=== PATIENT | female | born 1980 | race American Indian/Alaskan Native ===

== ENCOUNTER 2016-10-26 12:09 | Emergency (ER) | payer MEDICAID ==
[2016-10-26 12:24] VITALS: BP 141/78
--- NOTE | 2016-10-26 12:45 | EDM.PDOC ---
ED HPI GENERAL MEDICAL PROBLEM - General Chief Complaint: Gastrointestinal Problem Stated Complaint: CONSTIPATED Time Seen by Provider: 10/26/16 12:42 Source of Information: Reports: Patient History Limitations: Reports: No Limitations - History of Present Illness INITIAL COMMENTS - FREE TEXT/NARRATIVE: 36 YO WF presents to ER with complaints of generalized abdominal pain and constipation. Pt reports she hasn't had a normal stool in over 1 month. Pt reports she's passing gas and had a small bowel movement yesterday but her pain became worse last night. Pt denies any fever/chills, denies any history of IBD/ IBS or colitis. Onset Date: 10/25/16 Onset Time: 19:00 Duration: Getting Worse Location: Reports: Abdomen Quality: Reports: Ache Severity: Moderate Improves with: Reports: None Worsens with: Reports: None Associated Symptoms: Reports: Nausea/Vomiting (nausea) Right Lower Abdomen Pain Score (Numeric/FACES): 10 - Related Data Allergies Allergy/AdvReac Type Severity Reaction Status Date / Time codeine Allergy Anaphylactic Verified 10/26/16 13:12 Shock Home Meds: Home Meds Polyethylene Glycol 3350 [MiraLAX] 17 gm PO BID #10 packet 10/26/16 [Rx] Past Medical History Gastrointestinal History: Reports: Cholelithiasis, Pancreatitis 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: 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 Uterine Bleeding, Musculoskeletal History: Reports: Arthritis Neurological History: Reports: Headaches, Chronic, Migraines Other Neuro History: nuerofibromatosis, 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 Psychiatric History: Reports: Anxiety, Depression, Panic Attack, Psych Hospitalization(s), Suicide Attempt Hematologic History: Reports: Blood Transfusion(s) - Infectious Disease History Infectious Disease History: Reports: None - Past Surgical History GI Surgical History: Reports: Appendectomy, Cholecystectomy Female Surgical History: Reports: Section, Hysterectomy, Oophorectomy Social & Family History - Tobacco Use Smoking Status *Q: Current Every Day Smoker Years of Tobacco use: 10 Packs/Tins Daily: 0.5 Used Tobacco, but Quit: No Second Hand Smoke Exposure: Yes - Caffeine Use Caffeine Use: Reports: Coffee, Soda - Alcohol Use Days Per Week of Alcohol Use: 0 - Recreational Drug Use Recreational Drug Use: No Recreational Drug Type: Reports: Marijuana/Hashish Recreational Drug Use Frequency: Daily ED ROS GENERAL - Review of Systems Review Of Systems: See Below Constitutional: Reports: No Symptoms HEENT: Reports: No Symptoms Respiratory: Reports: No Symptoms Cardiovascular: Reports: No Symptoms Endocrine: Reports: No Symptoms GI/Abdominal: Reports: Abdominal Pain, Constipation, Nausea : Reports: No Symptoms Musculoskeletal: Reports: No Symptoms Skin: Reports: No Symptoms Neurological: Reports: No Symptoms Psychiatric: Reports: No Symptoms Hematologic/Lymphatic: Reports: No Symptoms Immunologic: Reports: No Symptoms ED EXAM, GI/ABD - Physical Exam Exam: See Below Exam Limited By: No Limitations General Appearance: Alert, WD/WN, Mild Distress Throat/Mouth: Normal Inspection, Normal Lips, Normal Teeth, Normal Gums, Normal Oropharynx, Normal Voice, No Airway Compromise Head: Atraumatic, Normocephalic Neck: Normal Inspection, Supple, Non-Tender, Full Range of Motion Respiratory/Chest: No Respiratory Distress, Lungs Clear, Normal Breath Sounds, No Accessory Muscle Use, Chest Non-Tender Cardiovascular: Normal Peripheral Pulses, Regular Rate, Rhythm, No Edema, No Gallop, No JVD, No Murmur, No Rub GI/Abdominal: Normal Bowel Sounds, Soft, No Organomegaly, No Distention, No Abnormal Bruit, No Mass, Tenderness (generalized). No: Guarding, Rebound Back Exam: Normal Inspection, Full Range of Motion, NT Extremities: Normal Inspection, Normal Range of Motion, Non-Tender, Normal Capillary Refill, No Pedal Edema Neurological: Alert, Oriented, CN II-XII Intact, Normal Cognition, Normal Gait, Normal Reflexes, No Motor/Sensory Deficits Psychiatric: Normal Affect, Normal Mood Skin Exam: Warm, Dry, Intact, Normal Color, No Rash Lymphatic: No Adenopathy Course - Vital Signs Last Recorded V/S: Last Vital Signs Temp 36.1 C 10/26/16 12:22 Pulse 64 10/26/16 12:22 Resp 20 10/26/16 12:22 BP 141/78 H 10/26/16 12:22 Pulse Ox 99 10/26/16 12:22 - Orders/Labs/Meds Orders: Active Orders 24 hr Category Date Time Status Abdomen Pelvis w Cont [CT] Stat Exams 10/26/16 12:46 Taken Labs: Laboratory Tests 10/26/16 10/26/16 10/26/16 Range/Units 13:05 13:05 13:40 WBC 7.1 (5.0-10.0) 10^3/uL RBC 4.34 (3.80-5.50) 10^6/uL Hgb 13.3 (12.0-16.0) g/dL Hct 38.1 (37.0-47.0) % MCV 87.8 (82.0-92.0) fL MCH 30.6 (27.0-31.0) pg MCHC 34.8 (32.0-36.0) g/dL RDW 12.9 (11.5-14.5) % Plt Count 161 (150-300) 10^3/uL MPV 9.0 (7.4-10.4) fL Neut % (Auto) 75.2 H (50.0-70.0) % Lymph % (Auto) 18.0 L (20.0-40.0) % Prentiss % (Auto) 5.9 (2.0-8.0) % Eos % (Auto) 0.8 L (1.0-3.0) % Baso % (Auto) 0.1 (0.0-1.0) % Neut # (Auto) 5.3 (2.5-7.0) 10^3/uL Lymph # (Auto) 1.3 (1.0-4.0) 10^3/uL Prentiss # (Auto) 0.4 (0.1-0.8) 10^3/uL Eos # (Auto) 0.1 (0.1-0.3) 10^3/uL Baso # (Auto) 0.0 (0.0-0.1) 10^3/uL Sodium 138 (136-145) mmol/L Potassium 4.0 (3.3-5.3) mmol/L Chloride 106 (98-115) mmol/L Carbon Dioxide 23.1 (21.0-32.0) mmol/L BUN 15 (6-25) mg/dL Creatinine 0.59 (0.51-1.17) mg/dL Est Cr Clr Drug Dosing 125.77 mL/min Estimated GFR (MDRD) > 60 mL/min Glucose 98 (70-110) mg/dL Calcium 8.3 L (8.7-10.3) mg/dL Total Bilirubin 0.2 (0.2-1.0) mg/dL AST 15 (15-37) U/L ALT 8 L (12-78) U/L Alkaline Phosphatase 48 (46-116) IU/L Total Protein 6.7 (6.4-8.2) g/dL Albumin 3.64 (3.00-4.80) g/dL Lipase 130 (73-393) U/L Specimen Type Urincc Urine Color Yellow (YELLOW) Urine Appearance Clear (CLEAR) Urine pH 7.0 (5.0-9.0) Ur Specific [place] 1.020 (1.005-1.030) Urine Protein Negative (NEGATIVE) mg/dL Urine Glucose (UA) Negative (NEGATIVE) mg/dL Urine Ketones Negative (NEGATIVE) mg/dL Urine Occult Blood Negative (NEGATIVE) Urine Nitrite Negative (NEGATIVE) Urine Bilirubin Negative (NEGATIVE) Urine Urobilinogen 1.0 (0.2-1.0) E.U./dL Ur Leukocyte Esterase Negative (NEGATIVE) Urine RBC Not seen /HPF Urine WBC 0-5 /HPF Ur Epithelial Cells Moderate H /LPF Amorphous Sediment Moderate H (0/HPF) /HPF Urine Bacteria Rare (NONE TO FEW) /HPF Urine Mucus Few H (NEGATIVE) /LPF Meds: Medications Discontinued Medications Generic Name Dose Route Start Last Admin Trade Name Freq PRN Reason Stop Dose Admin Sodium Chloride 1,000 mls @ 999 mls/hr 10/26/16 12:46 10/26/16 13:05 Normal Saline IV 10/26/16 13:46 999 mls/hr .BOLUS ONE Administration Iopamidol 75 ml 10/26/16 13:20 10/26/16 13:43 Isovue-300 (61%) IV 10/26/16 13:21 75 ml . DIRECTED PRN Administration FOR RADIOLOGY EXAM Ondansetron HCl 4 mg 10/26/16 12:46 10/26/16 13:05 Zofran IVPUSH 10/26/16 12:47 4 mg ONETIME ONE Administration Sodium Chloride 50 ml 10/26/16 13:20 10/26/16 13:43 Normal Saline FLUSH 10/26/16 13:21 50 ml ONETIME ONE Administration - Radiology Interpretation Free Text/Narrative:: CT abd/Pelvis- mild fecal retention in proximal colon Departure - Departure Time of Disposition: 14:22 Disposition: Home, Self-Care 01 Condition: good Clinical Impression: Constipation Qualifiers: Constipation type: unspecified constipation type Qualified Code(s): K59.00 - Constipation, unspecified Abdominal pain Qualifiers: Abdominal location: generalized Qualified Code(s): R10.84 - Generalized abdominal pain - Discharge Information Prescriptions: Polyethylene Glycol 3350 [MiraLAX] 17 gm PO BID #10 packet Instructions: Abdominal Pain, Adult, [id number], Constipation, Adult, Easy-to -Read Forms: ED Department Discharge - My Orders Last 24 Hours: My Active Orders 10/26/16 12:46 Abdomen Pelvis w Cont [CT] Stat - Assessment/Plan Last 24 Hours: My Active Orders 10/26/16 12:46 Abdomen Pelvis w Cont [CT] Stat Assessment:: 1. constipation 2. abdominal pain Plan: 1. discharge home 2. miralax for constipation 3. colace 100mg po BID for stool softener 4. follow up in clinic this week for further evaluation and treatment
[2016-10-26] MEDS ORDERED: Sodium Chloride 0.9% 1,000 ML IV ONE (12:46)
[2016-10-26] MEDS ORDERED: Ondansetron 4 MG/2 ML SDV IVPUSH ONE (12:46)
[2016-10-26] MEDS ORDERED: Sodium Chloride 0.9% 50 ML SDV FLUSH ONE (13:20)
[2016-10-26] MEDS ORDERED: Iopamidol 612 MG/ML 75 ML Bottle IV PRN (13:20)
[2016-10-26 13:41] LABS: CHLORIDE,CL 106 mmol/L (98-115); SODIUM,NA 138 mmol/L (136-145)
[2016-10-26] MEDS ORDERED: Polyethylene Glycol 3350 Powder 17 GM Packet PO SCH (14:30)
== END 2016-10-26 14:45 | disposition home or self-care (01) ==
LOC: KA.ED 12:09
DX: K59.00 Constipation, unspecified (principal); R10.84 Generalized abdominal pain; F17.210 Nicotine dependence, cigarettes, uncomplicated; F41.9 Anxiety disorder, unspecified; F32.9 Major depressive disorder, single episode, unspecified; G43.909 Migraine, unspecified, not intractable, without status migrainosus; M19.90 Unspecified osteoarthritis, unspecified site; Z88.5 Allergy status to narcotic agent; Z90.49 Acquired absence of other specified parts of digestive tract; Z90.710 Acquired absence of both cervix and uterus
CPT/HCPCS: 74177; 80053; 81001; 83690; 85025; 96361; 96374; 99284; J2405; J7030; Q9967

== ENCOUNTER 2017-01-25 21:07 | Emergency (ER) | payer OTHER, MEDICAID ==
[2017-01-25 21:30] VITALS: BP 136/73
--- NOTE | 2017-01-25 21:52 | EDM.PDOC ---
ED HPI GENERAL MEDICAL PROBLEM - General Chief Complaint: Upper Extremity Injury/Pain Stated Complaint: RIGHT SHOULDER INJURY Time Seen by Provider: 01/25/17 21:38 Source of Information: Reports: Patient History Limitations: Reports: No Limitations - History of Present Illness INITIAL COMMENTS - FREE TEXT/NARRATIVE: Patient presents with right posterior shoulder/scapular pain after falling on outstretched right hand about 5 hours ago. She slipped on a wet floor at a diner. She denies any head injury, neck pain, elbow, wrist or hand pain. She feels tingling in her hand and finger going up the forearm. 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: 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 Uterine Bleeding, Musculoskeletal History: Reports: Arthritis Neurological History: Reports: Headaches, Chronic, Migraines Other Neuro History: nuerofibromatosis, 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 Psychiatric History: Reports: Anxiety, Depression, Panic Attack, Psych Hospitalization(s), Suicide Attempt Hematologic History: Reports: Blood Transfusion(s) - Infectious Disease History Infectious Disease History: Reports: None - Past Surgical History GI Surgical History: Reports: Appendectomy, Cholecystectomy Female Surgical History: Reports: Section, Hysterectomy, Oophorectomy Social & Family History - Tobacco Use Smoking Status *Q: Current Every Day Smoker Years of Tobacco use: 10 Packs/Tins Daily: 0.5 Used Tobacco, but Quit: No Second Hand Smoke Exposure: Yes - Caffeine Use Caffeine Use: Reports: Coffee, Soda - Alcohol Use Days Per Week of Alcohol Use: 0 - Recreational Drug Use Recreational Drug Use: No Recreational Drug Type: Reports: Marijuana/Hashish Recreational Drug Use Frequency: Daily Review of Systems - Review of Systems Review Of Systems: See Below Constitutional: Denies: Chills, Fever Eyes: Denies: Vision Change Ears: Denies: Dizziness Nose: Denies: Epistaxis Mouth/Throat: Reports: No Symptoms Respiratory: Denies: Shortness of Breath, Cough Cardiovascular: Denies: Chest Pain, Syncope GI/Abdominal: Denies: Abdominal Pain, Vomiting Genitourinary: Reports: No Symptoms Musculoskeletal: Reports: Shoulder Pain. Denies: Neck Pain, Arm Pain, Back Pain , Hand Pain, Leg Pain Skin: Denies: Cyanosis, Jaundice, Mottled, Pallor, Diaphoresis Neurological: Reports: Tingling. Denies: Confusion, Dizziness, Headache, Numbness, Seizure, Syncope, Trouble Speaking, Difficulty Walking Psychiatric: Denies: Confusion ED EXAM, GENERAL - Physical Exam Exam: See Below Exam Limited By: No Limitations General Appearance: Alert, WD/WN, No Apparent Distress Eye Exam: Bilateral Eye: EOMI, Normal Inspection, PERRL Ears: Normal External Exam, Hearing Grossly Normal Nose: Normal Inspection, No Blood Throat/Mouth: Normal Lips, Normal Voice, No Airway Compromise Head: Atraumatic, Normocephalic Neck: Full Range of Motion Respiratory/Chest: No Respiratory Distress, Lungs Clear, Normal Breath Sounds Cardiovascular: Regular Rate, Rhythm, No Murmur Peripheral Pulses: 2+: Radial (R) Back Exam: Other (tender to palpation of right rhomboid just medial to scapular spine. No bony tenderness or deformity.). No: Paraspinal Tenderness, Vertebral Tenderness Extremities: Non-Tender, No Pedal Edema, Normal Capillary Refill, Other (right wrist is non tender with full ROM, supination/pronation hurts into the back, not at elbow or arm. No tenderness of anterior shoulder, clavicle or humerus, elbow, forearm.) Neurological: Alert, Oriented, Normal Cognition, No Motor/Sensory Deficits, Other (Sensation to touch is intact but feels tingly in hand and fingers.) Psychiatric: Normal Affect, Normal Mood Skin Exam: Warm, Dry, Intact, Normal Color, No Rash Course - Vital Signs Last Recorded V/S: Last Vital Signs Temp 97.6 F 01/25/17 21:28 Pulse 98 01/25/17 21:28 Resp 18 01/25/17 21:28 BP 136/73 01/25/17 21:28 Pulse Ox 98 01/25/17 21:28 - Orders/Labs/Meds Orders: Active Orders 24 hr Category Date Time Status Shoulder Comp Rt [CR] Stat Exams 01/25/17 21:21 Ordered - Re-Assessments/Exams Free Text/Narrative Re-Assessment/Exam: 01/25/17 22:31 Xrays show no evidence of fracture or dislocation. Discussed findings, expectations and treatment plan with patient. Placed a sling. Gave Ibuprofen and Tramadol. Advised to use ice to control swelling for 24-48 hours, then warm packs may be more soothing and healing for the muscle. Follow up with PCP in a few days, especially if not improving. Patient discharged in stable condition. Departure - Departure Time of Disposition: 22:10 Disposition: Home, Self-Care 01 Condition: Good Clinical Impression: Rhomboid muscle strain Qualifiers: Encounter type: initial encounter Qualified Code(s): S29.012A - Strain of muscle and tendon of back wall of thorax, initial encounter - Discharge Information Referrals: Kristen Roberts, DOCUMENT CONTROL SPECIALIST [Primary Care Provider] - Additional Instructions: 1. Wear sling for support and comfort. May remove for showering and range of motion a couple times a day. 2. Take Ibuprofen 600 mg every 8 hours for a few days then as needed. 3. Take the Tramadol as directed if pain is not controlled adequately with the Ibuprofen. 4. Follow up with your PCP in a few days for recheck, sooner if the tingling is worsening or becomes numb. - My Orders Last 24 Hours: My Active Orders 01/25/17 21:21 Shoulder Comp Rt [CR] Stat - Assessment/Plan Last 24 Hours: My Active Orders 01/25/17 21:21 Shoulder Comp Rt [CR] Stat
[2017-01-25] MEDS ORDERED: traMADol 50 MG Tab PO ONE (22:07)
[2017-01-25] MEDS ORDERED: Ibuprofen 600 MG Tab PO ONE (22:10)
[2017-01-25] MEDS ORDERED: Ibuprofen 400 MG Tab ONE (22:14)
[2017-01-25] MEDS ORDERED: Ibuprofen 200 MG Tab ONE (22:15)
[2017-01-25] MEDS ORDERED: traMADol 50 MG Tab ONE (22:16)
== END 2017-01-25 22:30 | disposition home or self-care (01) ==
LOC: KA.ED 21:07
DX: S29.012A Strain of muscle and tendon of back wall of thorax, initial encounter (principal); M19.90 Unspecified osteoarthritis, unspecified site; G43.909 Migraine, unspecified, not intractable, without status migrainosus; F32.9 Major depressive disorder, single episode, unspecified; F17.210 Nicotine dependence, cigarettes, uncomplicated; F41.9 Anxiety disorder, unspecified; Z90.49 Acquired absence of other specified parts of digestive tract; Z90.710 Acquired absence of both cervix and uterus; Z88.5 Allergy status to narcotic agent; W01.0XXA Fall on same level from slipping, tripping and stumbling without subsequent striking against object, initial encounter; Y92.001 Dining room of unspecified non-institutional (private) residence as the place of occurrence of the external cause
CPT/HCPCS: 73030; 99283; A9270

== ENCOUNTER 2017-03-07 17:12 | Emergency (ER) | payer MEDICAID, OTHER ==
[2017-03-07 17:23] VITALS: BP 108/51
[2017-03-07] MEDS: Hydrocortisone 1% Crm 30 GM Tube TOP SCH (18:00)
[2017-03-07] MEDS ORDERED: Lidocaine/Prilocaine 2.5-2.5% Crm 30 GM Tube TOP ONE (18:00)
[2017-03-07] MEDS ORDERED: Lidocaine/Prilocaine 2.5-2.5% Crm 5 GM Tube TOP ONE (18:00)
[2017-03-07] MEDS ORDERED: Lidocaine 2% with EPINEPHrine 1:200,000 20 ML SDV INJECT ONE (18:40)
[2017-03-07] MEDS ORDERED: Ibuprofen 400 MG Tab PO ONE (18:57)
--- NOTE | 2017-03-07 19:17 | EDM.PDOC ---
ED HPI GENERAL MEDICAL PROBLEM - General Chief Complaint: General Stated Complaint: HEMMOROIDS Time Seen by Provider: 03/07/17 17:35 Source of Information: Reports: Patient History Limitations: Reports: No Limitations - History of Present Illness INITIAL COMMENTS - FREE TEXT/NARRATIVE: 36-year-old female presents to emergency room with a painful hemorrhoid. Patient reports history of hemorrhoids in the past and has always been able to treat this with [id number] medications and medicated pads. Her hemorrhoids become quite severe and uncomfortable rating it a 9 out of 10 on pain scale. This bothered her significantly today while at work. She comes in to have this further evaluated. She denies significant constipation and has a regular bowel movement. She denies difficulty having a bowel movement with straining her regular bowel habits. Onset: Today Onset Date: 03/07/17 Onset Time: 08:00 Duration: Hour(s):, Constant Location: Reports: Other (rectum) Quality: Reports: Ache, Throbbing Severity: Severe Improves with: Reports: None Worsens with: Reports: Movement Associated Symptoms: Reports: No Other Symptoms Rectal Pain Score (Numeric/FACES): 9 - Related Data Allergies Allergy/AdvReac Type Severity Reaction Status Date / Time codeine Allergy Anaphylactic Verified 03/07/17 17:24 Shock Home Meds: Home Meds ALPRAZolam [Alprazolam] 0.5 mg PO TID PRN 01/25/17 [History] Polyethylene Glycol 3350 [MiraLAX] 17 gm PO BID PRN 01/25/17 [History] Sertraline HCl [Zoloft] 200 mg PO BEDTIME 01/25/17 [History] Past Medical History HEENT History: Reports: Impaired Vision Respiratory History: Reports: Other (See Below) Other Respiratory History: smoker Gastrointestinal History: Reports: Cholelithiasis, Hemorrhoids, Pancreatitis Genitourinary History: Reports: None 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: 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 Uterine Bleeding, Musculoskeletal History: Reports: Arthritis Neurological History: Reports: Headaches, Chronic, Migraines Other Neuro History: nuerofibromatosis, 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 Psychiatric History: Reports: Anxiety, Depression, Panic Attack, Psych Hospitalization(s), Suicide Attempt Hematologic History: Reports: Blood Transfusion(s) - Infectious Disease History Infectious Disease History: Reports: None - Past Surgical History GI Surgical History: Reports: Appendectomy, Cholecystectomy Female Surgical History: Reports: Section, Hysterectomy, Oophorectomy Social & Family History - Tobacco Use Smoking Status *Q: Current Every Day Smoker Years of Tobacco use: 10 Packs/Tins Daily: 0.5 Used Tobacco, but Quit: No Second Hand Smoke Exposure: Yes - Caffeine Use Caffeine Use: Reports: Coffee, Soda - Alcohol Use Days Per Week of Alcohol Use: 0 - Recreational Drug Use Recreational Drug Use: No Recreational Drug Type: Reports: Marijuana/Hashish Recreational Drug Use Frequency: Daily ED ROS GENERAL - Review of Systems Review Of Systems: ROS reveals no pertinent complaints other than HPI. ED EXAM, GENERAL - Physical Exam Exam: See Below Exam Limited By: No Limitations General Appearance: Alert, WD/WN, No Apparent Distress Head: Atraumatic, Normocephalic Rectal (Female) Exam: Hemorrhoids (tender mass over the left rectum) Back Exam: Normal Inspection Extremities: Normal Inspection Neurological: Alert, Oriented Psychiatric: Normal Affect, Normal Mood Skin Exam: Warm, Dry, Intact, Normal Color, No Rash ED I&D PROCEDURES - I&D Skin prep: Providone-Iodine (Betadine) Local anesthesia - Lidocaine (Xylocaine): 2% with EPI Local Anesthetic Volume: Other (15 mL) Area Incised With: 15 Blade Drainage: Bloody Probed to Break Up Loculations: Yes Sterile Dressinx4(s) Complications: No Course - Vital Signs Last Recorded V/S: Last Vital Signs Temp 98.7 F 03/07/17 17:21 Pulse 69 03/07/17 17:21 Resp 18 03/07/17 17:21 BP 108/51 L 03/07/17 17:21 Pulse Ox 100 03/07/17 17:21 - Orders/Labs/Meds Meds: Medications Discontinued Medications Generic Name Dose Route Start Last Admin Trade Name Shazia PRN Reason Stop Dose Admin Ibuprofen 800 mg 03/07/17 18:57 03/07/17 19:02 Motrin PO 03/07/17 18:58 800 mg ONETIME ONE Administration Lidocaine/Epinephrine 15 ml 03/07/17 18:40 03/07/17 18:40 Xylocaine-Mpf 2%-Epi 1:200,000 INJECT 03/07/17 18:41 15 ml ONETIME ONE Administration Departure - Departure Time of Disposition: 19:18 Disposition: Home, Self-Care 01 Condition: Good Clinical Impression: Thrombosed external hemorrhoid - Discharge Information Instructions: Surgical Procedures for Hemorrhoids, Care After, How to Take a Sitz Bath, Hemorrhoids, [id number] Referrals: Kristen Roberts CODING QUALITY COORDINATOR [Primary Care Provider] - Forms: ED Department Discharge Additional Instructions: 1. Dressing bedtime versus spell about 6 hours 2. Nonsteroidal anti-inflammatories, ibuprofen 800 mg 3 times a day with food for pain 3. Tylenol 1000 mg 3 times a day for pain. 4. Hydrocortisone/lidocaine topical apply to the anal area twice a day 5. Colace 100 mg twice a day for stool softener. 6. Follow-up with your primary care next week for recheck. 7. Warm water sitz baths for 15 minutes 3 times a day and after each bowel movement. - Assessment/Plan Assessment:: Thrombosed external hemorrhoid Plan: 1. Dressing bedtime versus spell about 6 hours 2. Nonsteroidal anti-inflammatories, ibuprofen 800 mg 3 times a day with food for pain 3. Tylenol 1000 mg 3 times a day for pain. 4. Hydrocortisone/lidocaine topical apply to the anal area twice a day 5. Colace 100 mg twice a day for stool softener. 6. Follow-up with your primary care next week for recheck. 7. Warm water sitz baths for 15 minutes 3 times a day and after each bowel movement.
== END 2017-03-07 19:10 | disposition home or self-care (01) ==
LOC: KA.ED 17:12
DX: K64.5 Perianal venous thrombosis (principal)
CPT/HCPCS: 46083; 99282; A9270

== ENCOUNTER 2017-06-13 11:27 | Emergency (ER) | payer MEDICAID, OTHER ==
--- NOTE | 2017-06-13 11:38 | EDM.PDOC ---
ED HPI GENERAL MEDICAL PROBLEM - General Chief Complaint: Upper Extremity Injury/Pain Stated Complaint: RIGHT MIDDLE FINGERS LACERATION Time Seen by Provider: 06/13/17 11:33 Source of Information: Reports: Patient History Limitations: Reports: No Limitations - History of Present Illness INITIAL COMMENTS - FREE TEXT/NARRATIVE: 36 YO WF presents to ER with laceration to palmar surface of right middle finger. Pt reports she was cutting bread and accidentally cut her finger with the knife. Pt denies any other injury. Pt denies any loss of sensation or function. Onset: Today Onset Date: 06/13/17 Duration: Hour(s): (1) Location: Reports: Upper Extremity, Right Quality: Reports: Ache Severity: Mild Improves with: Reports: Rest Worsens with: Reports: None Associated Symptoms: Reports: No Other Symptoms - Related Data Allergies Allergy/AdvReac Type Severity Reaction Status Date / Time codeine Allergy Anaphylactic Verified 06/13/17 11:50 Shock Home Meds: Home Meds ALPRAZolam [Alprazolam] 0.5 mg PO TID PRN 01/25/17 [History] Polyethylene Glycol 3350 [MiraLAX] 17 gm PO BID PRN 01/25/17 [History] Sertraline HCl [Zoloft] 200 mg PO BEDTIME 01/25/17 [History] Past Medical History HEENT History: Reports: Impaired Vision Respiratory History: Reports: Other (See Below) Other Respiratory History: smoker Gastrointestinal History: Reports: Cholelithiasis, Hemorrhoids, Pancreatitis Genitourinary History: Reports: None 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, Musculoskeletal History: Reports: Arthritis Neurological History: Reports: Headaches, Chronic, Migraines Other Neuro History: nuerofibromatosis, 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 Psychiatric History: Reports: Anxiety, Depression, Panic Attack, Psych Hospitalization(s), Suicide Attempt Hematologic History: Reports: Blood Transfusion(s) - Infectious Disease History Infectious Disease History: Reports: None - Past Surgical History GI Surgical History: Reports: Appendectomy, Cholecystectomy Female Surgical History: Reports: Section, Hysterectomy, Oophorectomy Social & Family History - Tobacco Use Smoking Status *Q: Current Every Day Smoker Years of Tobacco use: 10 Packs/Tins Daily: 0.5 Used Tobacco, but Quit: No Second Hand Smoke Exposure: Yes - Caffeine Use Caffeine Use: Reports: Coffee, Soda - Alcohol Use Days Per Week of Alcohol Use: 0 - Recreational Drug Use Recreational Drug Use: No Recreational Drug Type: Reports: Marijuana/Hashish Recreational Drug Use Frequency: Daily Review of Systems - Review of Systems Review Of Systems: See Below Constitutional: Reports: No Symptoms Eyes: Reports: No Symptoms Ears: Reports: No Symptoms Nose: Reports: No Symptoms Mouth/Throat: Reports: No Symptoms Respiratory: Reports: No Symptoms Cardiovascular: Reports: No Symptoms GI/Abdominal: Reports: No Symptoms Genitourinary: Reports: No Symptoms Musculoskeletal: Reports: No Symptoms Skin: Reports: Wound (2cm laceration to proximal palmar surface of right middle finger) Neurological: Reports: No Symptoms Psychiatric: Reports: No Symptoms ED EXAM, GENERAL - Physical Exam Exam: See Below Exam Limited By: No Limitations General Appearance: Alert, WD/WN, No Apparent Distress Nose: Normal Inspection, Normal Mucosa, No Blood Throat/Mouth: Normal Inspection, Normal Lips, Normal Teeth, Normal Gums, Normal Oropharynx, Normal Voice, No Airway Compromise Head: Atraumatic, Normocephalic Neck: Normal Inspection Respiratory/Chest: No Respiratory Distress, Lungs Clear, Normal Breath Sounds, No Accessory Muscle Use, Chest Non-Tender Cardiovascular: Normal Peripheral Pulses, Regular Rate, Rhythm, No Edema, No Gallop, No JVD, No Murmur, No Rub GI/Abdominal: Normal Bowel Sounds, Soft, Non-Tender, No Organomegaly, No Distention, No Abnormal Bruit, No Mass Back Exam: Normal Inspection, Full Range of Motion, NT Extremities: Other (2cm laceration to proximal palmar surface of right middle finger) Neurological: Alert, Oriented, CN II-XII Intact, Normal Cognition, Normal Gait, Normal Reflexes, No Motor/Sensory Deficits Psychiatric: Normal Affect, Normal Mood Skin Exam: Warm, Dry, Intact, Normal Color, No Rash Lymphatic: No Adenopathy ED TRAUMA EXTREMITY PROCEDURES - Laceration/Wound Repair Right Anterior Proximal Finger Lac/Wound Length In cm: 2 Appearance: Superficial, Clean Distal NVT: Neuro & Vascular Intact Anesthetic Type: Digital Local Anesthesia - Lidocaine (Xylocaine): 1% Plain Local Anesthetic Volume: Other (10) Exploration/Debridement/Repair: Wound Explored Closed With: Sutures Suture Size: other (5-0) # of Sutures: 2 Sterile Dressing Applied: Provider Tetanus Status Addressed: Yes Complications: No Departure - Departure Time of Disposition: 12:06 Disposition: Home, Self-Care 01 Condition: Good Clinical Impression: Hand laceration Qualifiers: Encounter type: initial encounter Foreign body presence: without foreign body Laterality: right Qualified Code(s): S61.411A - Laceration without foreign body of right hand, initial encounter - Discharge Information Instructions: Laceration Care, Adult, [id number] Referrals: Kristen Roberts VIDEO GAME TECHNICIAN [Primary Care Provider] - Forms: ED Department Discharge - Assessment/Plan Assessment:: 1. 2cm laceration to palmar/proximal right middle finger Plan: 1. discharge home 2. wound care instructions 3. suture removal 10-14 days 4. return to ER for worsening symptoms 5. risk of infection instruction given
[2017-06-13 11:54] VITALS: BP 112/55
[2017-06-13] MEDS: Diphtheria,Pertussis(Acell),Tetanus Vaccine 0.5 ML SDV IM ONE (12:08)
[2017-06-13] MEDS: Lidocaine 1% 20 ML MDV ONE (18:13)
== END 2017-06-13 12:11 | disposition home or self-care (01) ==
LOC: KA.ED 11:27
DX: S61.212A Laceration without foreign body of right middle finger without damage to nail, initial encounter (principal); F17.210 Nicotine dependence, cigarettes, uncomplicated; Z23 Encounter for immunization; Z88.5 Allergy status to narcotic agent; W26.0XXA Contact with knife, initial encounter
CPT/HCPCS: 12001; 90471; 90715; 99282

== ENCOUNTER 2017-06-16 16:10 | Emergency (ER) | payer MEDICAID, OTHER ==
[2017-06-16 16:25] VITALS: BP 124/52
--- NOTE | 2017-06-16 16:39 | EDM.PDOC ---
ED HPI GENERAL MEDICAL PROBLEM - General Chief Complaint: General Stated Complaint: Slip and Fall- Knee injury Time Seen by Provider: 06/16/17 16:20 Source of Information: Reports: Patient History Limitations: Reports: No Limitations - History of Present Illness INITIAL COMMENTS - FREE TEXT/NARRATIVE: 36 YO WF presents to ER after trip and fall at [employer]. Pt reports she was walking out and missed a step and fell forward onto her right knee. Pt denies any loss of consciousness or other injuries. Pt was able to ambulate after the fall. Pt has a small abrasion to right knee. Onset: Today Onset Date: 06/16/17 Onset Time: 15:30 Duration: Hour(s): (1) Location: Reports: Lower Extremity, Right Quality: Reports: Ache Severity: Mild Improves with: Reports: Movement Worsens with: Reports: Rest Associated Symptoms: Reports: No Other Symptoms Right Knee Pain Score (Numeric/FACES): 8 - Related Data Allergies Allergy/AdvReac Type Severity Reaction Status Date / Time codeine Allergy Anaphylactic Verified 06/16/17 16:25 Shock Home Meds: Home Meds ALPRAZolam [Alprazolam] 0.5 mg PO TID PRN 01/25/17 [History] Polyethylene Glycol 3350 [MiraLAX] 17 gm PO BID PRN 01/25/17 [History] Sertraline HCl [Zoloft] 200 mg PO BEDTIME 01/25/17 [History] Ibuprofen [Motrin] 600 mg PO Q6H #20 tab 06/16/17 [Rx] Past Medical History HEENT History: Reports: Impaired Vision Respiratory History: Reports: Other (See Below) Other Respiratory History: smoker Gastrointestinal History: Reports: Cholelithiasis, Hemorrhoids, Pancreatitis Genitourinary History: Reports: None 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, Musculoskeletal History: Reports: Arthritis Neurological History: Reports: Headaches, Chronic, Migraines Other Neuro History: nuerofibromatosis, 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 Psychiatric History: Reports: Anxiety, Depression, Panic Attack, Psych Hospitalization(s), Suicide Attempt Hematologic History: Reports: Blood Transfusion(s) - Infectious Disease History Infectious Disease History: Reports: None - Past Surgical History GI Surgical History: Reports: Appendectomy, Cholecystectomy Female Surgical History: Reports: Section, Hysterectomy, Oophorectomy Social & Family History - Tobacco Use Smoking Status *Q: Current Every Day Smoker Years of Tobacco use: 10 Packs/Tins Daily: 0.5 Used Tobacco, but Quit: No Second Hand Smoke Exposure: Yes - Caffeine Use Caffeine Use: Reports: Coffee, Soda - Alcohol Use Days Per Week of Alcohol Use: 0 - Recreational Drug Use Recreational Drug Use: No Recreational Drug Type: Reports: Marijuana/Hashish Recreational Drug Use Frequency: Daily ED ROS GENERAL - Review of Systems Review Of Systems: See Below Constitutional: Reports: No Symptoms HEENT: Reports: No Symptoms Respiratory: Reports: No Symptoms Cardiovascular: Reports: No Symptoms Endocrine: Reports: No Symptoms GI/Abdominal: Reports: No Symptoms : Reports: No Symptoms Musculoskeletal: Reports: Leg Pain Skin: Reports: No Symptoms Neurological: Reports: No Symptoms Psychiatric: Reports: No Symptoms Hematologic/Lymphatic: Reports: No Symptoms Immunologic: Reports: No Symptoms ED EXAM, GENERAL - Physical Exam Exam: See Below Exam Limited By: No Limitations General Appearance: Alert, WD/WN, No Apparent Distress Neck: Normal Inspection, Supple, Non-Tender, Full Range of Motion Respiratory/Chest: No Respiratory Distress, Lungs Clear, Normal Breath Sounds, No Accessory Muscle Use, Chest Non-Tender Cardiovascular: Normal Peripheral Pulses, Regular Rate, Rhythm, No Edema, No Gallop, No JVD, No Murmur, No Rub GI/Abdominal: Normal Bowel Sounds, Soft, Non-Tender, No Organomegaly, No Distention, No Abnormal Bruit, No Mass Back Exam: Normal Inspection, Full Range of Motion, NT Extremities: Normal Inspection, Normal Range of Motion, Non-Tender, Normal Capillary Refill, No Pedal Edema Neurological: Alert, Oriented, CN II-XII Intact, Normal Cognition, Normal Gait, Normal Reflexes, No Motor/Sensory Deficits Psychiatric: Normal Affect, Normal Mood Skin Exam: Warm, Dry, Intact, Normal Color, No Rash Lymphatic: No Adenopathy Course - Vital Signs Last Recorded V/S: Last Vital Signs Temp 37.1 C 06/16/17 16:19 Pulse 86 06/16/17 16:19 Resp 18 06/16/17 16:19 BP 124/52 L 06/16/17 16:19 Pulse Ox 100 06/16/17 16:19 Departure - Departure Time of Disposition: 16:48 Disposition: Home, Self-Care 01 Condition: Good Clinical Impression: Contusion of knee, right Qualifiers: Encounter type: initial encounter Qualified Code(s): S80.01XA - Contusion of right knee, initial encounter - Discharge Information Prescriptions: Ibuprofen [Motrin] 600 mg PO Q6H #20 tab Instructions: Knee Pain Referrals: Kristen Roberts, AVIATION TECHNICIAN [Primary Care Provider] - Forms: ED Department Discharge, ED Return to Work/School Form - Assessment/Plan Assessment:: 1. right knee contusion Plan: 1. discharge home 2. motrin 600mg PO Q6 PRN pain 3. rest/ice/elevation and crutches PRN
[2017-06-16] MEDS ORDERED: Ketorolac 60 MG/2 ML SDV IM ONE (16:57)
== END 2017-06-16 17:20 | disposition home or self-care (01) ==
LOC: KA.ED 16:10
DX: S80.01XA Contusion of right knee, initial encounter (principal); Z88.5 Allergy status to narcotic agent; F17.210 Nicotine dependence, cigarettes, uncomplicated; W01.0XXA Fall on same level from slipping, tripping and stumbling without subsequent striking against object, initial encounter
CPT/HCPCS: 73562; 96372; 99283; J1885

== ENCOUNTER 2017-06-22 20:48 | Emergency (ER) | payer MEDICAID ==
[2017-06-22] MEDS ORDERED: Sodium Chloride 0.9% 5 ML Syringe FLUSH PRN (21:38)
[2017-06-22] MEDS ORDERED: diphenhydrAMINE 50 MG/ML SDV IVPUSH ONE (21:38)
[2017-06-22] MEDS ORDERED: Sodium Chloride 0.9% 1,000 ML IV ONE (21:38)
[2017-06-22] MEDS ORDERED: Dexamethasone 4 MG/ML SDV IVPUSH ONE (21:38)
--- NOTE | 2017-06-22 21:51 | EDM.PDOC ---
ED HPI GENERAL MEDICAL PROBLEM - General Chief Complaint: Headache Stated Complaint: BAD HEADACHE..MIGRAINE Time Seen by Provider: 06/22/17 21:37 Source of Information: Reports: Patient History Limitations: Reports: No Limitations - History of Present Illness INITIAL COMMENTS - FREE TEXT/NARRATIVE: Patient is a 36-year-old female who presents to the emergency Department today with a complaint of severe headache. Patient states that on 06/16/2017. She had a slip and fall and injured right knee. She was seen here in the emergency department and did not complain of any head injury, or headache at that time and there is no documentation of such. The following day patient was in [place] and developed a severe headache. She therefore presented to the [facility] ER and underwent evaluation and a CAT scan. CAT scan was said to be negative and patient was diagnosed with a concussion. At that time patient told ER staff that she thinks she might have hit her head when she fell. On the following day 06/18/2017, she was in [place] and developed a headache and was seen at their ER. Symptoms intermittently persist and patient was seen today at the [place] [facility]. Patient was given Toradol and Tylenol today and told to return to the clinic tomorrow to be re-seen. Patient and decided they did not want to wait till tomorrow morning to be seen so they decided to present to the emergency department this evening. Patient has strong history of anxiety and depression and is on multiple medications. Patient admits to change in psych medicines this week also. Patient does have a history of migraine headaches, anxiety, and panic attacks. Patient states that since the fall she has been losing her short-term memory. Patient denies fever, nausea, vomiting, diarrhea, vision changes, neck pain, or any other pain or injury. Onset: Gradual Onset Date: 06/16/17 Duration: Day(s):, Intermittent Location: Reports: Head Quality: Reports: Ache Severity: Moderate Improves with: Reports: None Worsens with: Reports: None Context: Reports: Trauma (Unsubstantiated) Associated Symptoms: Reports: No Other Symptoms. Denies: Chest Pain, Fever/ Chills, Nausea/Vomiting, Shortness of Breath Treatments DIET CLERK: Reports: Acetaminophen, NSAIDS Left Head Pain Score (Numeric/FACES): 20 - Related Data Allergies Allergy/AdvReac Type Severity Reaction Status Date / Time codeine Allergy Anaphylactic Verified 06/22/17 21:27 Shock Home Meds: Home Meds Polyethylene Glycol 3350 [MiraLAX] 17 gm PO BID PRN 01/25/17 [History] Sertraline HCl [Zoloft] 100 mg PO BEDTIME 01/25/17 [History] Albuterol [Ventolin HFA] 2 puff PO Q2H PRN 06/16/17 [History] Amitriptyline [Elavil] 25 mg PO BEDTIME 06/16/17 [History] ClonazePAM [KlonoPIN] 0.5 mg PO BID 06/16/17 [History] Ibuprofen [Motrin] 600 mg PO Q6H #20 tab 06/16/17 [Rx] Past Medical History HEENT History: Reports: Impaired Vision Respiratory History: Reports: Other (See Below) Other Respiratory History: smoker Gastrointestinal History: Reports: Cholelithiasis, Hemorrhoids, Pancreatitis Genitourinary History: Reports: None 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, Musculoskeletal History: Reports: Arthritis Neurological History: Reports: Headaches, Chronic, Migraines Other Neuro History: nuerofibromatosis, 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 Psychiatric History: Reports: Anxiety, Depression, Panic Attack, Psych Hospitalization(s), Suicide Attempt Hematologic History: Reports: Blood Transfusion(s) - Infectious Disease History Infectious Disease History: Reports: None - Past Surgical History GI Surgical History: Reports: Appendectomy, Cholecystectomy Female Surgical History: Reports: Section, Hysterectomy, Oophorectomy Social & Family History - Tobacco Use Smoking Status *Q: Current Every Day Smoker Years of Tobacco use: 11 Packs/Tins Daily: 0.5 Used Tobacco, but Quit: No Second Hand Smoke Exposure: Yes - Caffeine Use Caffeine Use: Reports: Coffee, Soda - Alcohol Use Days Per Week of Alcohol Use: 0 - Recreational Drug Use Recreational Drug Use: No Recreational Drug Type: Reports: Marijuana/Hashish Recreational Drug Use Frequency: Daily ED ROS GENERAL - Review of Systems Review Of Systems: ROS reveals no pertinent complaints other than HPI. Constitutional: Reports: No Symptoms HEENT: Reports: No Symptoms. Denies: Eye Pain, Vision Change Respiratory: Reports: No Symptoms Cardiovascular: Reports: No Symptoms Endocrine: Reports: No Symptoms GI/Abdominal: Reports: No Symptoms : Reports: No Symptoms Musculoskeletal: Reports: No Symptoms Skin: Reports: No Symptoms Neurological: Reports: Headache Psychiatric: Reports: Anxiety, Depression. Denies: Homicidal Ideation, Suicidal Ideation Hematologic/Lymphatic: Reports: No Symptoms Immunologic: Reports: No Symptoms - Physical Exam Exam: See Below Exam Limited By: No Limitations General Appearance: Alert, WD/WN, No Apparent Distress Eye Exam: Bilateral Eye: Normal Inspection Nose: Normal Inspection, Normal Mucosa, No Blood Throat/Mouth: Normal Inspection, Normal Oropharynx, No Airway Compromise Head Exam: Atraumatic, Normocephalic Neck: Normal Inspection, Supple, Non-Tender, Full Range of Motion Respiratory/Chest: No Respiratory Distress, Lungs Clear, Normal Breath Sounds, No Accessory Muscle Use, Chest Non-Tender Cardiovascular: Regular Rate, Rhythm, No Murmur GI/Abdominal: Normal Bowel Sounds, Soft, Non-Tender Neuro Exam (Abbreviated): Alert, Oriented, CN II-XII Intact, Normal Cognition, No Motor/Sensory Deficits Back Exam: Normal Inspection Extremities: Normal Inspection Psychiatric: Anxious Skin Exam: Warm, Dry, Intact, Normal Color, No Rash Course - Vital Signs Last Recorded V/S: Last Vital Signs Temp 96.0 F 06/22/17 21:28 Pulse 94 06/22/17 21:28 Resp 18 06/22/17 21:28 BP 122/71 06/22/17 21:28 Pulse Ox 99 06/22/17 21:28 - Orders/Labs/Meds Orders: Active Orders 24 hr Category Date Time Status Peripheral IV Care [RC] . DIRECTED Care 06/22/17 21:38 Ordered Sodium Chloride 0.9% @ 999 MLS/HR (1000ml) Med 06/22/17 21:38 Ordered Sodium Chloride 0.9% [Normal Saline] 1,000 ml IV .BOLUS Sodium Chloride 0.9% [Syrex Flush] Med 06/22/17 21:38 Ordered 5 ml FLUSH Q8HR PRN diphenhydrAMINE [Benadryl] Med 06/22/17 21:38 Once 25 mg IVPUSH ONETIME ONE Peripheral IV Insertion Adult [OM.PC] Routine Oth 06/22/17 21:38 Ordered Medication Orders Sodium Chloride (Normal Saline) 1,000 mls @ 999 mls/hr IV .BOLUS ONE Stop: 06/22/17 22:38 Sodium Chloride (Syrex Flush) 5 ml FLUSH Q8HR PRN PRN Reason: Keep Vein Open Meds: Medications Generic Name Dose Route Start Last Admin Trade Name Freq PRN Reason Stop Dose Admin Sodium Chloride 1,000 mls @ 999 mls/hr 06/22/17 21:38 Normal Saline IV 06/22/17 22:38 .BOLUS ONE Sodium Chloride 5 ml 06/22/17 21:38 Syrex Flush FLUSH Q8HR PRN Keep Vein Open Discontinued Medications Generic Name Dose Route Start Last Admin Trade Name Freq PRN Reason Stop Dose Admin Dexamethasone 8 mg 06/22/17 21:38 Dexamethasone IVPUSH 06/22/17 21:39 ONETIME ONE Diphenhydramine HCl 25 mg 06/22/17 21:38 Benadryl IVPUSH 06/22/17 21:39 ONETIME ONE - Re-Assessments/Exams Free Text/Narrative Re-Assessment/Exam: 06/22/17 22:12 Patient afebrile, nontoxic appearing. Vital signs stable. Headache resolved, and patient will follow-up with provider as scheduled at [facility] tomorrow. Departure - Departure Time of Disposition: 22:13 Disposition: Home, Self-Care 01 Condition: Good Clinical Impression: Migraine - Discharge Information Instructions: Recurrent Migraine Headache, [id number] Referrals: Kristen Roberts, STRIPE MATCHER [Primary Care Provider] - Forms: ED Department Discharge Additional Instructions: Follow-up at [facility] as scheduled tomorrow - My Orders Last 24 Hours: My Active Orders 06/22/17 21:38 Peripheral IV Care [RC] . DIRECTED Sodium Chloride 0.9% @ 999 MLS/HR (1000ml) Sodium Chloride 0.9% [Normal Saline] 1,000 ml IV .BOLUS Sodium Chloride 0.9% [Syrex Flush] 5 ml FLUSH Q8HR PRN diphenhydrAMINE [Benadryl] 25 mg IVPUSH ONETIME ONE Peripheral IV Insertion Adult [OM.PC] Routine - Assessment/Plan Last 24 Hours: My Active Orders 06/22/17 21:38 Peripheral IV Care [RC] . DIRECTED Sodium Chloride 0.9% @ 999 MLS/HR (1000ml) Sodium Chloride 0.9% [Normal Saline] 1,000 ml IV .BOLUS Sodium Chloride 0.9% [Syrex Flush] 5 ml FLUSH Q8HR PRN diphenhydrAMINE [Benadryl] 25 mg IVPUSH ONETIME ONE Peripheral IV Insertion Adult [OM.PC] Routine Assessment:: Headache Plan: Follow-up tomorrow at the [facility] as scheduled
[2017-06-22 22:19] VITALS: BP 106/60
== END 2017-06-22 23:00 | disposition home or self-care (01) ==
LOC: KA.ED 20:48
DX: G43.909 Migraine, unspecified, not intractable, without status migrainosus (principal); F41.9 Anxiety disorder, unspecified; F32.9 Major depressive disorder, single episode, unspecified; F17.210 Nicotine dependence, cigarettes, uncomplicated; Z88.5 Allergy status to narcotic agent
CPT/HCPCS: 96361; 96374; 96375; 99283; J1100; J1200; J7030

== ENCOUNTER 2017-09-04 19:12 | Emergency (ER) | payer MEDICAID ==
[2017-09-04 19:33] VITALS: BP 137/95
[2017-09-04] MEDS ORDERED: Sodium Chloride 0.9% 1,000 ML IV ONE (19:49)
[2017-09-04] MEDS ORDERED: Dexamethasone 4 MG/ML SDV IVPUSH ONE (19:49)
[2017-09-04] MEDS ORDERED: Metoclopramide 10 MG/2 ML SDV IVPUSH ONE (19:49)
[2017-09-04] MEDS ORDERED: diphenhydrAMINE 50 MG/ML SDV IVPUSH ONE (19:49)
--- NOTE | 2017-09-04 20:04 | EDM.PDOC ---
ED HPI GENERAL MEDICAL PROBLEM - General Chief Complaint: Headache Stated Complaint: MIGRAINE Time Seen by Provider: 09/04/17 19:49 Source of Information: Reports: Patient History Limitations: Reports: No Limitations - History of Present Illness INITIAL COMMENTS - FREE TEXT/NARRATIVE: Patient is a 37-year-old female who presents to the emergency department this evening with a complaint of migraine exacerbation. Patient states that she sustained a concussion 3 months ago and has had migraine symptoms since. Patient was seen by primary care physician today and given IM Toradol. She said symptoms somewhat relieved and then returned again this evening. Patient requested IM morphine or Dilaudid for headache. Patient underwent MRI brain yesterday. Results unavailable. Patient denies chest pain, shortness of breath , nausea, vomiting, diarrhea, recent trauma, or fever. Onset: Gradual Duration: Chronic, Waxing/Waning Location: Reports: Head Quality: Reports: Ache, Pressure Severity: Moderate Improves with: Reports: None Worsens with: Reports: None Context: Denies: Trauma Associated Symptoms: Reports: No Other Symptoms Treatments ROPE TIER: Reports: NSAIDS, Other Medication(s) Left Head Pain Score (Numeric/FACES): 10 - Related Data Allergies Allergy/AdvReac Type Severity Reaction Status Date / Time codeine Allergy Anaphylactic Verified 06/22/17 21:27 Shock Home Meds: Home Meds Polyethylene Glycol 3350 [MiraLAX] 17 gm PO BID PRN 01/25/17 [History] Albuterol [Ventolin HFA] 2 puff PO Q2H PRN 06/16/17 [History] Amitriptyline [Elavil] 25 mg PO BEDTIME 06/16/17 [History] ClonazePAM [KlonoPIN] 0.5 mg PO BID 06/16/17 [History] Ibuprofen [Motrin] 600 mg PO Q6H #20 tab 06/16/17 [Rx] Escitalopram [Lexapro] 10 mg PO DAILY 06/22/17 [History] Past Medical History HEENT History: Reports: Impaired Vision Respiratory History: Reports: Other (See Below) Other Respiratory History: smoker Gastrointestinal History: Reports: Cholelithiasis, Hemorrhoids, Pancreatitis Genitourinary History: Reports: None 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: 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 Uterine Bleeding, Musculoskeletal History: Reports: Arthritis Neurological History: Reports: Headaches, Chronic, Migraines Other Neuro History: nuerofibromatosis, 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 Psychiatric History: Reports: Anxiety, Depression, Panic Attack, Psych Hospitalization(s), Suicide Attempt Hematologic History: Reports: Blood Transfusion(s) - Infectious Disease History Infectious Disease History: Reports: None - Past Surgical History GI Surgical History: Reports: Appendectomy, Cholecystectomy Female Surgical History: Reports: Section, Hysterectomy, Oophorectomy Social & Family History - Tobacco Use Smoking Status *Q: Current Every Day Smoker Years of Tobacco use: 11 Packs/Tins Daily: 0.5 Used Tobacco, but Quit: No Second Hand Smoke Exposure: Yes - Caffeine Use Caffeine Use: Reports: Coffee, Soda - Alcohol Use Days Per Week of Alcohol Use: 0 Number of Drinks Per Day: 2 Total Drinks Per Week: 0 - Recreational Drug Use Recreational Drug Use: No Drug Use in Last 12 Months: Yes Recreational Drug Type: Reports: Marijuana/Hashish Recreational Drug Use Frequency: Daily ED ROS GENERAL - Review of Systems Review Of Systems: ROS reveals no pertinent complaints other than HPI. Constitutional: Reports: No Symptoms HEENT: Reports: No Symptoms Respiratory: Reports: No Symptoms Cardiovascular: Reports: No Symptoms Endocrine: Reports: No Symptoms GI/Abdominal: Reports: No Symptoms : Reports: No Symptoms Musculoskeletal: Reports: No Symptoms Skin: Reports: No Symptoms Neurological: Reports: Headache Psychiatric: Reports: No Symptoms Hematologic/Lymphatic: Reports: No Symptoms Immunologic: Reports: No Symptoms - Physical Exam Exam: See Below Exam Limited By: No Limitations General Appearance: Alert, WD/WN, Mild Distress Eye Exam: Bilateral Eye: Normal Inspection Nose: Normal Inspection, Normal Mucosa, No Blood Throat/Mouth: Normal Inspection, Normal Oropharynx, No Airway Compromise Head Exam: Atraumatic, Normocephalic Neck: Normal Inspection, Supple, Non-Tender Respiratory/Chest: No Respiratory Distress, Lungs Clear, Normal Breath Sounds, No Accessory Muscle Use, Chest Non-Tender Cardiovascular: Regular Rate, Rhythm, No Murmur GI/Abdominal: Normal Bowel Sounds, Soft, Non-Tender Neuro Exam (Abbreviated): Alert, Oriented, CN II-XII Intact, Normal Cognition, No Motor/Sensory Deficits Back Exam: Normal Inspection Extremities: Normal Inspection, No Pedal Edema Psychiatric: Tearful Skin Exam: Warm, Dry, Intact, Normal Color, No Rash Course - Vital Signs Last Recorded V/S: Last Vital Signs Temp 96.9 F 09/04/17 19:31 Pulse 86 09/04/17 19:31 Resp 20 09/04/17 19:31 BP 137/95 H 09/04/17 19:31 Pulse Ox 100 09/04/17 19:31 - Orders/Labs/Meds Orders: Active Orders 24 hr Category Date Time Status Dexamethasone Med 09/04/17 19:49 Once 8 mg IVPUSH ONETIME ONE Metoclopramide [Reglan] Med 09/04/17 19:49 Once 10 mg IVPUSH ONETIME ONE Sodium Chloride 0.9% @ 999 MLS/HR (1000ml) Med 09/04/17 19:49 Ordered Sodium Chloride 0.9% [Normal Saline] 1,000 ml IV .BOLUS diphenhydrAMINE [Benadryl] Med 09/04/17 19:49 Once 50 mg IVPUSH ONETIME ONE - Re-Assessments/Exams Free Text/Narrative Re-Assessment/Exam: 09/04/17 21:01 Initially patient refused IV therapy for migraine resolution and wanted IM injection of Dilaudid. I mentioned to patient that narcotics would not be appropriate in this circumstance, and I felt confident that the IV therapy would resolve her symptoms. When the nurse attempted to administer the medication prescribed, patient became upset that she was not getting Dilaudid and decided to leave AGAINST MEDICAL ADVICE. Patient will follow-up with her primary care doctor Departure - Departure Time of Disposition: 20:23 Disposition: Against Medical Advice 07 Condition: Fair Clinical Impression: Migraine - Discharge Information Instructions: Migraine Headache, [id number] Referrals: Kristen Roberts [employer] [Primary Care Provider] - Forms: ED Department Discharge - My Orders Last 24 Hours: My Active Orders 09/04/17 19:49 Dexamethasone 8 mg IVPUSH ONETIME ONE Metoclopramide [Reglan] 10 mg IVPUSH ONETIME ONE Sodium Chloride 0.9% @ 999 MLS/HR (1000ml) Sodium Chloride 0.9% [Normal Saline] 1,000 ml IV .BOLUS diphenhydrAMINE [Benadryl] 50 mg IVPUSH ONETIME ONE - Assessment/Plan Last 24 Hours: My Active Orders 09/04/17 19:49 Dexamethasone 8 mg IVPUSH ONETIME ONE Metoclopramide [Reglan] 10 mg IVPUSH ONETIME ONE Sodium Chloride 0.9% @ 999 MLS/HR (1000ml) Sodium Chloride 0.9% [Normal Saline] 1,000 ml IV .BOLUS diphenhydrAMINE [Benadryl] 50 mg IVPUSH ONETIME ONE Assessment:: Migraine Plan: Left against medical advice
== END 2017-09-04 20:20 | disposition left against medical advice (07) ==
LOC: KA.ED 19:12
DX: G43.909 Migraine, unspecified, not intractable, without status migrainosus (principal); F17.210 Nicotine dependence, cigarettes, uncomplicated; Z88.5 Allergy status to narcotic agent; Z79.899 Other long term (current) drug therapy
CPT/HCPCS: 96374; 96375; 99283; J1100; J1200; J2765; J7030